=== PATIENT | male | born 1985 | race Caucasian/White ===

== ENCOUNTER → 2019-05-15 | Outpatient (CLI) | payer BC ==
--- NOTE | 2019-05-16 08:11 | US ---
EXAMINATION TYPE: US scrotum with doppler. Grayscale and color Doppler Duplex imaging performed of rosangela kimbrough scrotum. DATE OF EXAM: 05/15/2019 COMPARISON: NONE CLINICAL HISTORY: N50.82 scrotal pain. Pain left testicle EXAM MEASUREMENTS: TESTICLES: Right Testicle: 5.0 x 2.3 x 3.5 cm Left Testicle: 4.5 x 2.3 x 3.2 cm EPIDIDYMIS HEAD: Right Epididymis: 1.3 cm Left Epididymis: 1.0 cm Doppler performed to assess for testicular vascularity; good bilateral color flow and waveforms are s een. There is no evidence of testicular torsion. Presence of hydroceles: no Presence of varicoceles: no Slight increased vascularity is seen in the left testicle in comparison to the right. IMPRESSION: Slightly increased vascularity in the left testicle in comparison to the right. Consider orchitis.
== END | disposition home or self-care (01) ==
LOC: RADUSWWP 15:37
PROVIDERS: ATTEND Family Medicine
DX: N45.2 Orchitis (principal)
CPT/HCPCS: 76870; 93975